=== PATIENT | female | born 1970 | race Caucasian/White ===

== ENCOUNTER → 2016-06-16 | Outpatient (CLI) | payer OTHER ==
[~2016-06-16] MED LIST: ACET-749 PO; AMOX1TAB42 PO; ATOR-22 PO; CHOL400T5 PO; OXYC-57 PO
--- NOTE | 2016-06-16 09:54 | DIAGNOSTIC IMAGING REPORT ---
CT SCAN OF THE PARANASAL SINUSES CLINICAL HISTORY: Chronic sinusitis. COMPARISON STUDY: No priors. TECHNIQUE: High-resolution CT scan of the paranasal sinuses is performed. Images are reviewed in the axial, sagittal, and coronal planes. IV contrast was not administered for this examination. CT DOSE: 610.29 mGy.cm FINDINGS: Postoperative change: There is evidence of previous right maxillary antrectomy with antrostomy formation. Maxillary antra: Trace dependent mucosal thickening is seen bilaterally. There are incomplete bony septations identified bilaterally. Anterior ethmoid sinuses: Clear. Posterior ethmoid sinuses: There is no opacified posterior ethmoid air cell on the right. The remaining right sided as well as the left posterior ethmoid sinuses are clear. Sphenoid sinuses: There is subtotal opacification of the right sphenoid sinus. Trace mucosal thickening is seen on the left. Frontal sinuses: Mild mucosal thickening is noted on the right. Clear in the left. Ostiomeatal complexes: The right maxillary antrostomy and the left ostiomeatal complex are widely patent. Melchor cells are noted bilaterally. Frontoethmoidal and sphenoethmoidal recesses: The left sphenoethmoidal recess is clear. The right sphenoethmoidal recess is nearly occluded by mucosal thickening. The frontoethmoidal recesses are patent bilaterally. Carotid arteries: The carotid arteries are covered and without septal attachments. Ethmoid roofs: There is asymmetric elevation of the right ethmoid roof as compared to the left. Nasal turbinates: There is mild dariel bullosa of the right middle nasal turbinate. The remaining nasal turbinates are normal in appearance. Nasal septum: There is mild rightward deviation of the bony nasal septum. Optic nerves: Covered. Orbits: The bony orbits are intact. Orbital contents are normal in appearance. Calvarium: The imaged calvarium is normal in appearance Mastoid air cells: Well pneumatized. Brain parenchyma: Partially visualized brain parenchyma is within normal limits. IMPRESSION: Paranasal sinus disease as detailed above. Electronically signed by: Samuel De La Torre M.D. 06/16/2016 9:53 AM Dictated Date/Time: 06/16/2016 9:48 AM
== END | disposition home or self-care (01) ==
LOC: C.CTS 09:28
PROVIDERS: ATTEND Otolaryngology
DX: J32.9 Chronic sinusitis, unspecified (principal)

== ENCOUNTER → 2016-07-15 | Day surgery (SDC) | payer OTHER ==
[2016-07-06 07:50] VITALS: Ht 167.6 cm; Wt 70.9 kg
--- NOTE | 2016-07-14 09:19 | History and Physical: Surg Cnt ---
History & Physical Date Jul 14, 2016. Chief Complaint sinus infections History of Present Illness The patient is a 46 year old female with complaints of chronic sinusitis Additional History Hepatic Disease: No Endocrine Disorder: No Kidney Disease: No Hypertension: No Heart Disease: No Bleeding Tendencies: No Infectious Diseases: No Allergies Coded Allergies: Dust Mite Extract (Verified Allergy, Unknown, DUST MITES, 07/13/16) NO KNOWN DRUG ALLERGIES (Verified Allergy, Unknown, ., 07/06/16) Uncoded Allergies: CASHEWS (Allergy, Unknown, ?UNKNOWN, 07/06/16) Home Medications Scheduled Amoxicillin & Pot Clavulanate (Amoxicillin/Clavulanate P), 1 TAB PO BID Atorvastatin (Lipitor), 20 MG PO HS Cholecalciferol (Vitamin D), 800 UNIT PO QPM Scheduled PRN Acetaminophen/Codeine (Tylenol W/Codeine #3), 1 TAB PO BID PRN for Pain Physical Examination Skin: warm/dry, no rash Eyes: normal inspection, EOMI, sclerae normal ENT: normal ENT inspection, pharynx normal Head: normocephalic, atraumatic Neck: supple, no adenopathy, trachea midline Respiratory/Chest: lungs clear, normal breath sounds, no respiratory distress Cardiovascular: regular rate, rhythm, no edema, no murmur Abdomen / GI: normal bowel sounds, non tender Back: normal inspection Extremities: normal inspection, normal range of motion Neurologic/Psych: no motor/sensory deficits, alert, normal reflexes, oriented x 3 Diagnosis chronic sinusitis Plan of Treatment endoscopic sinus surgery
[~2016-07-15] VITALS: Ht 167.6 cm; Wt 70.9 kg
[~2016-07-15] MED LIST changes: +ALBUTEROL 0.083% NEBU SOLN 3 ML VIAL INH PRN; +ATROPINE SULFATE 0.1 MG/ML 5ML SYR IV PRN; +CEFAZOLIN 1000MG/55 ML D5W IV SCH; +DEXAMETHASONE SOD INJ 4 MG/ML VIAL ONE; +EpHEDrine SULFATE INJ 50 MG/ML AMP IV PRN; +EpINEphrine INJ 1MG/ML AMP 1 MG/ML AMP ONE; +FENTANYL CITRATE INJ 50 MCG/1 ML 2 ML VIAL IV PRN; +FENTANYL CITRATE INJ 50 MCG/1 ML 2 ML VIAL ONE; +FLUMAZENIL 0.1 MG/1 ML 10 ML VIAL IV PRN; +GLYCOPYRROLATE INJ 0.2 MG/ML VIAL ONE; +LABETALOL HCL IV 5 MG/ML 20ML IV PRN; +LACTATED RINGER'S 1000ML 1,000 ML IV SCH; +LIDO 2%/EPINEPHRINE 1:100000 20 ML VIAL INFIL ONE; +LIDOCAINE 4% MPF SOAK 5 ML = 1 DOSE TOP ONE; +LIDOCAINE HCL 2% 2 ML VIAL (20MG/ML) ONE; +MIDAZOLAM HCL 1 MG/ML 2ML VIAL ONE; +NALOXONE HCL 0.4 MG/1 ML VIAL/CARP IV PRN; +NEOSTIGMINE METHYLSULFATE 5 MG/5 ML SYR ONE; +ONDANSETRON INJ 2 MG/ML 2 ML VIAL IV PRN; +ONDANSETRON INJ 2 MG/ML 2 ML VIAL ONE; +OXYCODONE/ACETAMINOPHEN 5-325 TAB PO PRN; +OXYMETAZOLINE HCL 0.05% NA SPR 15 ML BTL SCH; +PROMETHAZINE HCL INJ 12.5 MG in SODIUM CHLORIDE 0.9% 50ML 50 ML IV PRN; +PROPOFOL IV EMULSION 10 MG/ML 20 ML VIAL IV ONE; +SODIUM CHLORIDE 0.9% 1000ML 1,000 ML IV SCH
--- NOTE | 2016-07-15 11:17 | History & Physical Bridge Note ---
H&P Re-Evaluation Bridge Note: I have examined the patient, reviewed the History & Physical and in the interval since the performance of the History & Physical I have noted the following changes of clinical significance: No changes noted
--- NOTE | 2016-07-15 13:35 | Discharge Instructions-SurgCtr ---
Discharge Instructions Visit Reason for Visit: Chronic Sinusitis Discharge Discharge Diagnosis / Problem: same Discharge Goals Goal(s): Improve disease control Activity Recommendations Activity Limitations: resume your previous activity Anesthesia . Post Anesthesia Instructions: If you have had General Anesthesia or IV Sedation: * Do not drive today. * Resume driving when surgeon permits. * Do not make important decisions or sign legal documents today. * Call surgeon for: 1. Temperature elevations greater than 101 degrees F. 2. Uncontrollable pain. 3. Excessive bleeding. 4. Persistent nausea and vomiting. 5. Medication intolerance (nausea, vomiting or rash). * For nausea and vomiting use only clear liquids such as: tea, soda, bouillon until nausea subsides, then gradually increase diet as tolerated. * If you have any concerns or questions, call your surgeon's office. If physician is unavailable and it is an emergency, call 911 or go to the nearest emergency room. . Instructions / Follow-Up Instructions / Follow-Up ACTIVITY RECOMMENDATIONS: * Being up and around is good, but no strenuous activity, heavy lifting or physical exertion for one week. * Keep your head elevated 30 degrees when lying down or sleeping. * Do not blow your nose for 48 hours, sniff back instead. * Avoid hot showers. OVER THE COUNTER MEDICATIONS: * You may use Tylenol * Avoid aspirin or aspirin containing products, e.g. as they may increase bleeding. SPECIAL CARE INSTRUCTIONS: * Expect to have bloody drainage from your nose and/or down your throat for one to three days. Change drip pad as needed. * Begin irrigating your nose with saline solution today, at least six to ten times per day and sniff back to help remove old clots or crust. * You may experience nasal and facial congestion, pain and pressure, this is normal. * Please call with any significant and/or progressive pain, redness, swelling around the eyes, visual changes, fever of 101.5 degrees F, active bleeding or any problems or concerns. * If active bleeding occurs, spray the nose three times at one minute intervals with Afrin spray and call or cell phone: . If unable to reach the doctor, go to the nearest Emergency Department. Special Diet: * Avoid extremely hot fluids. FOLLOW UP VISIT: Follow-up Visit with Dr. Caballero If not already scheduled, please call to schedule. Diet Recommendations Home Diet: no limitations Procedures Procedures Performed: Endoscopic Sinus Surgery With Brainlab Navigation, Frontal and Sphenoid Sinuses Pending Studies Studies pending at discharge: no Medical Emergencies . Who to Call and When: Medical Emergencies: If at any time you feel your situation is an emergency, please call 911 immediately. . Non-Emergent Contact Non-Emergency issues call your: Primary Care Provider . . "Provider Documentation" section prepared by Jeni FERNANDEZ Drug Monitoring Program Search Results: no issues identified
[2016-07-15 14:22] VITALS: TEMP 36.3
[2016-07-15 14:46] VITALS: BP 130/72; PULSE 42; O2SAT 100
--- NOTE | 2016-07-15 14:55 | Anesthesia Progress Nt - [facility] ---
Anesthesia Post Op Note Date & Time Jul 15, 2016 at 14:55 Vital Signs Pain Intensity: 2.0 Vital Signs Past 12 Hours Date Time Temp Pulse Resp B/P Pulse Ox O2 Delivery O2 Flow Rate FiO2 07/15/16 14:46 42 16 130/72 100 Room Air 07/15/16 14:22 36.3 47 16 124/71 96 Room Air 07/15/16 14:03 36.4 46 9 98 07/15/16 14:03 44 3 147/79 97 07/15/16 13:59 154/65 07/15/16 13:53 52 17 07/15/16 13:53 52 17 149/75 97 07/15/16 13:49 141/72 07/15/16 13:48 57 19 99 07/15/16 13:48 48 15 99 07/15/16 13:44 116/67 07/15/16 13:38 57 18 111/82 100 07/15/16 13:38 57 18 07/15/16 13:34 36.1 63 16 116/74 100 Mask 6 07/15/16 13:33 58 18 100 07/15/16 13:33 59 19 124/70 100 07/15/16 11:54 36.4 59 16 146/81 99 Room Air Notes Mental Status: alert / awake / arousable, participated in evaluation Pt Amnestic to Procedure: Yes Nausea / Vomiting: adequately controlled Pain: adequately controlled Airway Patency, RR, SpO2: stable & adequate BP & HR: stable & adequate Hydration State: stable & adequate Anesthetic Complications: no major complications apparent
--- NOTE | 2016-07-15 15:31 | OPERATIVE REPORT ---
DATE OF OPERATION: 07/15/2016 PREOPERATIVE DIAGNOSIS: Chronic sinusitis. POSTOPERATIVE DIAGNOSIS: Same. PROCEDURE: Right and left frontal, right and left sphenoid, right and left total ethmoid and right and left maxillary sinus antrostomy. SURGEON: Dr. Caballero. ANESTHESIA: General endotracheal. COMPLICATIONS: None. BLOOD LOSS: 30 mL HISTORY OF PRESENT ILLNESS: A 46-year-old lady with significant long history of recurrent chronic sinusitis, opacified right sphenoid sinus, previous antrectomy on the right antrectomy and also either a polyp or cyst in the right frontal sinus, on the CT scan. DESCRIPTION OF PROCEDURE: The patient was brought to the operating room, placed in supine position. General endotracheal anesthesia was induced, prepped, draped in usual sterile manner. Nose decongested using cottonoids with a topical solution of 4 mL of 4% Xylocaine mixed with 1 mL of epinephrine. Injection of 2% Xylocaine 1:1,000 strength epinephrine was also used. The right nasofrontal duct was cannulated with guidewire and dilated using the 6 mm balloon the guidewire with [email or web address] computer guidance. The guidewire was left in place as a marker. Frontal sinusotomy was performed with the guidewire in place, following the guidewire superiorly, removing the anterior wall, then the posterior wall of the agger nasi cell. At this point, total ethmoidectomy was performed removing the residual anterior ethmoid air cells and opening up all the posterior ethmoid air cells which were filled with polypoid mucosa. By going through the ground lamella, the skull base and lamina papyracea were identified with the [employer] guidance system and then followed anteriorly exonerating all the posterior and all the anterior ethmoid air cells up to the previously dilated nasal frontal duct. The nasofrontal duct was redilated and then irrigated clean with 60 mL of saline. The right sphenoid was cannulated by guidewire with [employer] computer guidance and dilated using the 6 mm balloon and then flushed clean with saline. There was a wide sphenoidotomy opening which was left open. The maxillary sinus was opened by removing scar tissue at the anterior border of the maxillary sinus and then this was cleaned with a suction. The left frontal sinusotomy, total ethmoidectomy, sphenoidotomy, and maxillary antrostomy performed in a similar manner; however, the maxillary sinus was opened by dilating with the 6 mm balloon and then opening it by removing polypoid mucosa at the posterior border, which is the anterior wall of the bullae ethmoidalis. The ethmoidectomy was performed by opening up the bullae ethmoidalis and then going through the ground lamella into the posterior ethmoid air cells and then performing the total ethmoidectomy in a similar manner. The sphenoid was opened by removing polypoid tissue at the inferior border of the superior meatus at the anterior face of the sphenoid. Propel stents were placed. The patient tolerated procedure well and was taken to recovery area in satisfactory condition. I attest to the content of the Intraoperative Record and any orders documented therein. Any exceptio ns are noted below.
== END | disposition home or self-care (01) ==
LOC: X.SURG 11:43
PROVIDERS: ATTEND Otolaryngology
DX: J32.9 Chronic sinusitis, unspecified (principal); Z91.018 Allergy to other foods; Z91.048 Other nonmedicinal substance allergy status; R01.1 Cardiac murmur, unspecified; E78.00 Pure hypercholesterolemia, unspecified; J45.909 Unspecified asthma, uncomplicated; M19.90 Unspecified osteoarthritis, unspecified site; M06.9 Rheumatoid arthritis, unspecified; Z90.710 Acquired absence of both cervix and uterus; Z90.89 Acquired absence of other organs